=== PATIENT | male | born 1955 | race Caucasian/White ===

== ENCOUNTER 2024-09-08 05:54 | Day surgery (SDC) | payer BC, SELFPAY ==
[2024-09-01 09:41] VITALS: BMI 24.4
[2024-09-01 10:06] LABS: % Basophils 0.4 % (0-2); % Eosinophils 1.5 % (0-6); % Immature Granulocytes 0.3 % (0-0.5); % Lymphocytes 26.4 % (20.5-51.1); % Monocytes 12.7 % (1.7-9.3); % Neutrophils 58.7 % (42.2-75.2); Absolute Eosinophils 0.1 10^3/uL (0-0.7); Absolute Neutrophils 4.4 10^3/uL (1.4-6.5); Hematocrit 41.7 % (39.0-52.0); Hemoglobin 14.3 g/dL (13.0-18.0); Mean Corp Hgb Conc. 34.3 g/dL (33.0-37.0); Mean Corpuscular Hgb 29.9 pg (27.0-31.0); Mean Corpuscular Volume 87.2 fL (80.0-94.0); Mean Platelet Volume 11.1 fL (7.4-10.4); Nucleated Red Blood Cells % 0 % (-); Platelet Count 158 10^3/uL (130-400); Red Blood Cell Count 4.78 10^6/uL (4.70-6.10); Red Cell Dist. Width 12.3 % (11.5-14.5); White Blood Cell Count 7.5 10^3/uL (4.8-10.8)
[2024-09-01 10:16] LABS: ALT (SGPT) 29 U/L (0-50); AST (SGOT) 26 U/L (17-59); Albumin 4.5 g/dl (3.5-5.0); Alkaline Phosphatase 45 U/L (38-126); Blood Urea Nitrogen 17 mg/dl (9-20); Calcium 9.1 mg/dl (8.4-10.2); Carbon Dioxide 30 mmol/L (22-30); Chloride 104 mmol/L (98-107); Estimated Creatinine Clearance 57 ml/min; Glucose 108 mg/dl (70-99); Magnesium 2.1 mg/dl (1.6-2.3); Potassium 4.8 mmol/L (3.5-5.1); Sodium 143 mmol/L (135-145); Total Bilirubin 1.7 mg/dl (0.2-1.3); Total Protein 7.3 g/dl (6.3-8.2); eGFR > 60.00
[2024-09-01 10:17] LABS: INR 1.37; PT 16.7 Sec (11.4-14.6)
[2024-09-08] VITALS (26 sets, daily range): BP systolic 96–149; BP diastolic 50–98; BMI 23.6
--- NOTE | 2024-09-08 07:37 | ITS.CL.ABL ---
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
Ablation
Procedure Report:
ELECTROPHYSIOLOGIC STUDY AND POSSIBLE ABLATION
DATE: September 08, 2024
Primary Care Provider: Dr Danny Joyner
Primary Hot Dog Vendor: Dr. Antonio Diaz
INDICATION:
Symptomatic Atrial Fibrillation.
Paroxysmal
HISTORY: See H and P.
Symptomatic AF, poorly controlled with attempted medical therapy
He has undergone EP study and ablation February 22, 2022 where he was found to have typical CTI flutter which was successfully ablated.
He underwent dual-chamber permanent pacemaker implantation June 14, 2022 for symptomatic sick sinus syndrome (Agu[place]).
He developed symptomatic atrial fibrillation on June 27, 2024, symptoms consisted of fatigue.� I reviewed an EKG from July 10, 2024 showing atrial fibrillation with evidence of VVI pacing and occasional PVCs.� He was started on oral
anticoagulation with Eliquis and also dronedarone on July 10, 2024.
He has been referred from Dr. Diaz� For consideration of PVI for symptomatic atrial fibrillation.
HAS-BLED: 1
Age
CHADSVASc: 2
Age
PRESENTING RHYTHM: DDD pacing and frequent monomorphic PVCs (consistent with outflow tract origin)
HISTORY: See H and P.
Symptomatic AF, poorly controlled with attempted medical therapy.
ANTIARRHYTHMIC DRUG: dronederone
ANTICOAGULATION: apixaban
'TIME-OUT': called and confirmed.
SEDATION/ANESTHESIA: provided via the anesthesia department using general anesthesia.
PROCEDURE:
The [place] dual-chamber permanent pacemaker was interrogated and found to have normal function.
Ultrasound Guidance performed by az was utilized for femoral venous Vascular Access b/l.
A decapolar CS catheter was placed within the CS for mapping and pacing.
The intracardiac ultrasound catheter was positioned in the RA for continuous intracardiac ultrasound imaging.
Heparin bolus and infusion to target ACT at 300 -350 seconds was administered. Transseptal puncture was performed. This entailed advancing a sheath with dilator into the superior vena cava and withdrawing both (monitoring intracardiac ultrasound,
fluoroscopy and tip pressure) with the tip oriented toward the atrial septum. The fossa ovalis was engaged (indicated by sudden displacement of the sheath tip as well as tenting of the fossa seen on intracardiac ultrasound).
The [employer] transseptal system was used. Left atrial catheter position was confirmed by echocardiographic imaging and fluoroscopy followed by RF delivery using the [employer] system resulting in successful LA access with pressure monitoring
demonstrating LA pressure waveforms (LA mean pressure 7 mm Hg). The sheath was advanced over the dilator and positioned in the left atrium.
The [place] Grid multipolar mapping catheter was initially positioned through the transseptal sheath for high density mapping.
Geometry and voltage mapping was performed using the [employer] multipolar grid catheter. Ensite-X was utilized for three-dimensional electroanatomical mapping.
A 3-D map was created using Ensite-X in Voxel mode. A 3-D reconstructed CT image was compared to the 3-D [employer] map to assist in anatomic evaluation, mapping and ablation.
The [employer] PFA catheter and system was used for cardiac ablation. Catheter positioning was guided and confirmed using both I.C.E. and fluoroscopy.
PV isolation approach was used to electrically isolate each PV ostia (LSPV, LIPV, RSPV, RIPV).
Additional energy applications/additional ablation set was required to accomplish wide area circumferential ablation around each of the pulmonary vein sets (WACA).
Remapping with the [place] multipolar grid catheter found that all PVPs were eliminated at each vein demonstrating entrance block. Also pacing from the multipolar mapping catheter around the the circumference of the ostia was performed at 10 ma and
2.0 msec output to assess for exit block. This demonstrated electrical isolation at each of the pulmonary vein ostia (LSPV, LIPV, RSPV, RIPV).
Programmed electrostimulation failed to induce any sustained arrhythmias.
I.C.E. :
Pre-Ablation Post-Ablation
LVEF: 55 % 55 %
WMA: none none
Pericardial effusion: trace posterior trace posterior
The [place] dual-chamber permanent pacemaker was interrogated and found to have normal stable function. Atrial lead impedance 480 ohms, ventricular lead impedance 450 ohms. Atrial sensing 2.5 mV, ventricular sensing greater than 12 mV. Atrial
capture threshold 0.5 V at 0.4 ms and ventricular capture threshold 0.5 V at 0.4 ms. There is PVC burden of 20% noted. Atrial pacing right/base pacing rate was reprogrammed from 60 to 70 bpm's in an effort to reduce frequency of PVCs.
COMPLICATIONS:
None
SUMMARY:
- Mapping and ablation to isolate the PVs
- Additional AF ablation set after PVI.
- 3-D Electroanatomical Mapping
- Interrogation and reprogramming of dual-chamber permanent pacemaker
- Intracardiac Ultrasound
Post ablation, I discussed today's findings and results with the patient's .
RECOMMENDATIONS:
- Observe in monitored bed.
- Maintain oral anticoagulation a minimum of 2 months.
There then can be consideration for discontinuation of oral anticoagulation if pacemaker diagnostics show no recurrence of sustained atrial arrhythmias.
Discontinuation of oral anticoagulation would require close attention to remote device diagnostics to alert for recurrence of AF which would then mandate reinitiation of anticoagulation.
- Discontinue dronedarone
- Office visit with Dr Diaz in 3 months.
- Continue cardiovascular care with Dr Diaz
Copy to:
Dr Danny Joyner
Dr. Antonio Diaz
[2024-09-08 08:46] LABS: ACT-LR - POC 342 Seconds (116-155)
--- NOTE | 2024-09-08 13:24 | W.PN.UPDATE ---
Update Note
Progress Note Update
Pt seen post PFA. Right groin site without ht/bleeding, oob ambulating. Post EKG AV paced 72, no acute changes. Resume eliquis tonight at usual time. Will discontinue multaq. Followup with Dr. Llanos as scheduled. Home today if groin site/tele
remain stable.
--- NOTE | 2024-09-08 15:05 | PTCARENOTE ---
Pt's right groin started oozing after ambulating to bathroom at 1352. Manual pressure applied x 10 minutes. Dressing removed. No further oozing, bleeding, or hematoma noted. Dry, sterile 4x4 and tegaderm applied. Pt remained flat x 15 minutes. Then
HOB elevated 30 degrees x 15 minutes. Pt ambulated around recovery room x 4 and urinated again. Right groin site remains stable. Shea GONZALEZ made aware and states ok for discharge. Pt's at pt bedside.
== END 2024-09-08 15:20 | disposition home or self-care (01) ==
LOC: CATH 05:54
PROVIDERS: ATTENDING PHYSICIAN Internal Medicine Cardiovascular Disease; FAMILY PHYSICIAN Family Medicine; OTHER PHYSICIAN Internal Medicine Interventional Cardiology
DX: I48.0 Paroxysmal atrial fibrillation (principal); I49.5 Sick sinus syndrome; Z95.0 Presence of cardiac pacemaker; F41.9 Anxiety disorder, unspecified; H40.9 Unspecified glaucoma; D35.2 Benign neoplasm of pituitary gland; I48.3 Typical atrial flutter; Z79.899 Other long term (current) drug therapy; Z79.01 Long term (current) use of anticoagulants; R53.83 Other fatigue
CPT/HCPCS: C1892; C1730; C1732; C1894; 36415; 75572; 80053; 83735; 85025; 85347; 85610; 86850; 86900; 86901; 93005; 93656; 93657; C1733; C1766; Q9967

== ENCOUNTER 2025-09-30 05:55 | Day surgery (SDC) | payer BC, SELFPAY ==
[2025-09-09 13:19] VITALS: BMI 23.5
[2025-09-09 13:56] LABS: Hematocrit 42.5 % (39.0-52.0); Hemoglobin 14.5 g/dL (13.0-18.0); Mean Corp Hgb Conc. 34.1 g/dL (33.0-37.0); Mean Corpuscular Volume 86.2 fL (80.0-94.0); Nucleated Red Blood Cells % 0 % (-); Platelet Count 157 10^3/uL (130-400); Red Cell Dist. Width 12.1 % (11.5-14.5)
[2025-09-09 13:58] LABS: INR 1.17; PT 15.4 Sec (11.4-14.6)
[2025-09-09 14:04] LABS: ALT (SGPT) 23 U/L (0-50); AST (SGOT) 26 U/L (17-59); Albumin 4.9 g/dl (3.5-5.0); Alkaline Phosphatase 52 U/L (38-126); Blood Urea Nitrogen 24 mg/dl (9-20); Calcium 9.5 mg/dl (8.4-10.2); Carbon Dioxide 29 mmol/L (22-30); Chloride 103 mmol/L (98-107); Estimated Creatinine Clearance 69 ml/min; Glucose 102 mg/dl (70-99); Magnesium 2.1 mg/dl (1.6-2.3); Potassium 4.5 mmol/L (3.5-5.1); Sodium 137 mmol/L (135-145); Total Protein 8.3 g/dl (6.3-8.2); eGFR > 60.00
[2025-09-30] VITALS (11 sets, daily range): BP systolic 92–130; BP diastolic 41–86; BMI 23.0
--- NOTE | 2025-09-30 08:05 | ITS.CL.ABL ---
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
Ablation
Procedure Report:
ELECTROPHYSIOLOGIC STUDY AND POSSIBLE ABLATION
DATE: September 30, 2025
Primary Care Provider: Danny Joyner MD
Primary Drop Press Hand: Antonio Diaz MD
INDICATION:
Symptomatic Atrial Fibrillation.
Paroxysmal
HISTORY: See H and P.
Symptomatic AF, poorly controlled with attempted medical therapy.
He has undergone EP study and ablation February 22, 2022 where he was found to have typical CTI flutter which was successfully ablated.
He underwent dual-chamber permanent pacemaker implantation June 14, 2022 for symptomatic sick sinus syndrome (� Aguillon).
Echocardiogram from [facility] March 01, 2022 finding normal LV size and function with ejection fraction of 50 to 55% and no significant valvular disease.
He underwent PVI on 09/08/24 (Farapulse)
He has recurred with symptomatic AF.
Also with frequent PVCs, PVC burden is 18%
HAS-BLED: 1
Age
CHADSVASc: 2
Age
PRESENTING RHYTHM: DDD pacing and frequent monomorphic PVCs (consistent with outflow tract origin)
HISTORY: See H and P.
Symptomatic AF, poorly controlled with attempted medical therapy.
ANTICOAGULATION: Apixaban 5 mg twice daily
'TIME-OUT': called and confirmed.
SEDATION/ANESTHESIA: provided via the anesthesia department using general anesthesia.
PROCEDURE:
Ultrasound Guidance with real-time visualization of needle insertion and vessel patency performed by wv for femoral venous Vascular Access.
Under real-time US guidance, the needle was advanced with negative pressure into the vein. The needle was seen entering the vessel lumen with a good return of dark red flow, the syringe was removed, non-pulsatile, dark red blood low was noted and
the wire was passed without difficulty, then the needle was removed. US confirmed the wire was in the vein, not going into an artery,
Images were taken and saved for the patient's permanent record. Imaging findings typical femoral venous anatomy. Direct visualization of needle puncture into the femoral vein was observed and recorded.
A decapolar CS catheter was placed within the CS for mapping and pacing.
The intracardiac ultrasound catheter was positioned in the RA for continuous intracardiac ultrasound imaging.
Heparin bolus and infusion to target ACT at 300 -350 seconds was administered. Transseptal puncture was performed. This entailed advancing a sheath with dilator into the superior vena cava and withdrawing both (monitoring intracardiac ultrasound,
fluoroscopy and tip pressure) with the tip oriented toward the atrial septum. The fossa ovalis was engaged (indicated by sudden displacement of the sheath tip as well as tenting of the fossa seen on intracardiac ultrasound).
Transseptal puncture was performed. Left atrial catheter position was confirmed by echocardiographic imaging, pressure monitoring (LA mean pressure [ ] mm Hg) and fluoroscopy. The sheath was advanced over the dilator and positioned in the left
atrium.
The Sphere 9 multipolar mapping/ablation Sphere-9 catheter was positioned through the transseptal sheath for high density mapping.
Geometry and voltage mapping was performed using the [employer] mapping system for three-dimensional electroanatomical mapping.
Catheter positioning was guided and confirmed using both I.C.E. and fluoroscopy.
Cardioversion resulted in sinus rhythm.
High density electroanatomical three-dimensional mapping demonstrated four PVs: LSPV, LIPV, RSPV, RIPV.
He presents in a regular atrial tachycardia at 220 ms.
Entrainment pacing from the right atrium finds the right atrium is outside the tachycardia circuit.
Mapping at the left atrium defines a macro reentrant mitral annular flutter.
Using the sphere 9 catheter radiofrequency energy was delivered along with pulsed electric field energy at a line between the left inferior pulmonary vein and the edge of the mitral valve annulus. Closer to the mitral valve annulus radiofrequency
energy is applied and from the mid isthmus back to the left inferior pulmonary vein pulsed electric field energy was applied. This change the tachycardia activation sequence (terminating MVA flutter).
Additional mapping to find a posterior wall dependent left atrial macroreentrant tachycardia.
A floor line was placed at the posterior wall of the left atrium from the left inferior pulmonary vein to the right inferior pulmonary vein and while completing this line the tachycardia terminated to sinus rhythm.
Attention was then turned to adequacy of prior PVI.
Ablation strategy included PVI as well as mapping for extra PV contributors to atrial fibrillation which would also be targeted if present.
There is reconnection at the right superior pulmonary vein towards its superior and anterior quadrant. Pulsed electric field energy was used to reisolate the veins
After accomplishing pulmonary venous isolation, mapping identified additional areas likely to be extra PV contributors to atrial fibrillation. These areas demonstrated patchy low voltage as well as complex fractionated electrograms. These areas can
be sites for the formation of rotors which can drive and maintain atrial fibrillation. These areas are known to be significant contributors to initiation and perpetuation of atrial fibrillation.
Additional energy applications/additional ablation sets targeted extra PV contributors to atrial fibrillation.
Targets for additional PFA ablation included:
LA posterior wall targeted with pulsed electric field energy isolating the posterior wall of the left atrium
After ablation of the posterior wall, additional targets were addressed:
The ridge of tissue between the left atrial appendage and the left sided pulmonary veins (Ligament of Julio Cesar )
These areas were ablated using pulsed electric field energy eliminating the extra PV contributors to atrial fibrillation.
Post ablation mapping finds entrance and exit block at each of the pulmonary veins (LSPV, LIPV, RSPV, RIPV), the LA posterior wall and at the additional line at the Ligament of Marshal rendering the sites no longer able to contribute to atrial
fibrillation.
Programmed electrostimulation including burst atrial pacing as well the delivery of decremental extrastimuli down to atrial effective refractory period and no sustained arrhythmias could be induced.
I.C.E. :
Pre-Ablation Post-Ablation
LVEF: 55 % 55 %
WMA: none none
Pericardial effusion: trace post trace post
LA Pressure (mmHg) 8 16
COMPLICATIONS:
None
SUMMARY:
- Mapping and ablation to isolate the PVs resulting in electrical isolation of the pulmonary veins
- Additional AF ablation sets X 2 after PVI (LA posterior wall, Inf/floor of the LA posterior wall) resulting in elimination of the targeted extra PV contributors to atrial fibrillation (Post wall, Inf LA floor)
- Mapping and ablation of a second tachycardia and a third tachycardia rendering them both non-inducible with programmed electrical stimulation
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
Macro reentrant left atrial posterior wall dependent flutter
- 3-D Electroanatomical Mapping
- Intracardiac Ultrasound
- Ultrasound guidance for vascular access
Post ablation, I discussed today's findings and results with the patient's , Zaria].
RECOMMENDATIONS:
- Observe in monitored bed.
- Maintain oral anticoagulation.
- Office visit with Gely Moyer in 3 to 4 months
- Continue cardiovascular care with Dr. Antonio Diaz.
Copy to:
Primary Care Provider: Danny Joyner MD
Primary Drop Press Hand: Antonio Diaz MD
[2025-09-30 08:55] LABS: ACT-LR - POC 322 Seconds (116-155)
[2025-09-30 09:17] LABS: ACT-LR - POC 329 Seconds (116-155)
--- NOTE | 2025-09-30 12:04 | W.PN.UPDATE ---
Update Note
Progress Note Update
Addendum to his ablation report from earlier today.
Interrogation and reprogramming of [facility] dual-chamber permanent pacemaker.
There is normal function of the pacemaker and lead system prior to ablation.
Post ablation once all catheters were removed from the heart there remained stable pacemaker and lead system function. Additionally there is no change in fluoroscopic appearance of the pacemaker and leads.
I did reprogram the device (reprogram from initial preprocedure programming)
Battery longevity is estimated at 6.7 years
Atrial sensing 1.4 mV, ventricular sensing 10.2 mV, RA impedance 420 ohms and RV impedance 530 ohms. Capture threshold in the atrium is 0.62 V at 0.4 ms and in the ventricle 0.5 V at 0.4 ms
He paces in the atrium approximately 76% of the time with somewhat flat heart rate histogram therefore programmed on rate sensing changing from DDD to DDDR and reduced base pacing rate from 70-60.
--- NOTE | 2025-09-30 13:55 | W.PN.UPDATE ---
Update Note
Progress Note Update
69 yo WM s/p PVI (same day). He denies cp, sob, luli diet, voiding, EKG AvDPaced, R fem site c/d/i. He will resume eliquis tonight. Activity restrictions reviewed. He will f/u Dr. Diaz in 1mo. He is for d/c home after 230p if groin stable.
== END 2025-09-30 14:30 | disposition home or self-care (01) ==
LOC: CATH 05:55
PROVIDERS: ATTENDING PHYSICIAN Internal Medicine Cardiovascular Disease; FAMILY PHYSICIAN Family Medicine; OTHER PHYSICIAN Internal Medicine Interventional Cardiology
DX: I48.0 Paroxysmal atrial fibrillation (principal); I48.92 Unspecified atrial flutter; F41.9 Anxiety disorder, unspecified; H40.9 Unspecified glaucoma; D35.2 Benign neoplasm of pituitary gland; Z95.0 Presence of cardiac pacemaker; I49.3 Ventricular premature depolarization; Z79.01 Long term (current) use of anticoagulants; I49.5 Sick sinus syndrome; Z79.899 Other long term (current) drug therapy
CPT/HCPCS: C1733; C1766; C1730; C1892; C1894; 36415; 80053; 83735; 85025; 85347; 85610; 86850; 86900; 86901; 93005; 93655; 93656; 93657